=== PATIENT | male | born 1995 | race Caucasian/White ===

== ENCOUNTER 2017-02-24 19:07 | Emergency (ER) | payer OTHER ==
[~2017-02-24] VITALS: Ht 177.8 cm; Wt 108.9 kg
[2017-02-24] MEDS ORDERED: PARO-49 PO (19:22)
[2017-02-24] MEDS ORDERED: LIDO15SO2 MM (19:39)
[2017-02-24] MEDS ORDERED: PENI500T PO (19:39)
[2017-02-24] MEDS ORDERED: NAPR500T3 PO (19:39)
--- NOTE | 2017-02-24 19:39 | ED EENT ---
History of Present Illness General Chief Complaint: Dental Problems/Pain Stated Complaint: TOOTH PAIN Nursing Triage Note: pt c/o left lower posterior dental pain starting . reports swelling et bleeding. Source: patient History of Present Illness Time seen by provider: 19:30 Initial Comments C/O PAIN TO LEFT LOWER WISDOM TOOTH AREA SINCE Sunday02/22/17 STATES HE IS CUTTING A WISDOM TOOTH AND IT HAS BEEN SWOLLEN, PAINFUL AND BLEEDING STATES HE HAS HAD SEVERAL DOSES OF IBUPROFEN WITHOUT RELIEF--LAST DOSE WAS 400 MG AT 1730 TODAY HAS AN APPOINTMENT WITH A DENTIST NEXT SUNDAY FOR THIS PROBLEM NO FEVER NO SWELLING TO JAW PCP: [facility] Allergies and Home Medications Allergies Coded Allergies: No Known Drug Allergies (Unverified , 02/24/17) Home Medications Lidocaine HCl 15 Ml Solution, 15 ML MM Q 1-2 HOURS, #1 Prescribed by: ARTHUR SCHULTZ on 02/24/171938 Naproxen 500 Mg Tablet, 500 MG PO BID, #20 Prescribed by: ARTHUR SCHULTZ on 02/24/171938 Paroxetine HCl 20 Mg Tablet, 20 MG PO DAILY, (Reported) Penicillin V Potassium 500 Mg Tablet, 500 MG PO QID, #40 Prescribed by: ARTHUR SCHULTZ on 02/24/171938 Review of Systems Constitutional: no symptoms reported Eyes: No Symptoms Reported Ears: No Symptoms Reported Nose: no symptoms reported Mouth: see HPI Throat: no symptoms reported Respiratory: no symptoms reported Cardiovascular: no symptoms reported Gastrointestinal: no symptoms reported Musculoskeletal: no symptoms reported Skin: no symptoms reported Neurological: No Symptoms Reported Past Tqqvzdw-Gsggvs-Sjheew Hx Patient Social History Alcohol Use: Denies Use Recreational Drug Use: No Smoking Status: Current Someday Smoker Recent Foreign Travel: No Contact w/Someone Who Travel: No Recent Infectious Disease Expo: No Recent Hopitalizations: No Seasonal Allergies Seasonal Allergies: No Surgeries HX Surgeries: Yes (bilat wrist surgery) Surgeries: Orthopedic Respiratory Hx Respiratory Disorders: No Cardiovascular Hx Cardiac Disorders: No Neurological Hx Neurological Disorders: No Genitourinary Hx Genitourinary Disorders: No Gastrointestinal Hx Gastrointestinal Disorders: No Musculoskeletal Hx Musculoskeletal Disorders: Yes (BILATERAL WRIST SURGERY) Endocrine Hx Endocrine Disorders: No HEENT HX ENT Disorders: No Cancer Hx Cancer: No Psychosocial Hx Psychiatric Problems: Yes Behavioral Health Disorders: Depression Integumentary HX Skin/Integumentary Disorder: No Physical Exam Vital Signs Vital Sign - Last 12Hours 02/24/17 02/24/17 19:20 19:55 Temp 98.2 Pulse 83 Resp 16 B/P (MAP) 140/97 Pulse Ox 98 General Appearance: WD/WN, no apparent distress Eyes: bilateral eye normal inspection Ears: bilateral ear TM normal, bilateral ear auricle normal, bilateral ear canal normal Nose: normal inspection Mouth/Throat: pharynx normal, No excessive drooling, No mandibular swelling, No maxillary swelling, No trismus, other (LEFT LOWER 3RD MOLAR AREA WITH SWELLING TO GUM AND EVIDENCE OF PARTIAL ERUPTION OF MOLAR, WITH SCANT AMOUNT OF BLOOD NOTED TO AREA. NO AREAS OF FLUCTUANCE. NO SWELLING TO BUCCAL MUCOSA OR TO JAW/FACE. OTHER 3RD MOLARS APPEAR TO BE NON-INFLAMED AND NON-ERUPTED AT THIS TIME. ) Neck: non-tender, full range of motion, supple, normal inspection, No lymphadenopathy (R) Cardiovascular: regular rate, rhythm, no murmur Respiratory: normal breath sounds Neurologic/Psychiatric: desulphurizer operator II-XII nml as tested, no motor/sensory deficits, alert, normal mood/affect, oriented x 3 Skin: normal color, warm/dry Progress/Results/Core Measures Results/Orders My Orders Orders - ANTOINEARTHUR K DO Rx-Penicillin Vk Tablet (Rx-Pen-Vee K Ta (02/24/17 19:43) Rx-Naproxen (Rx-Naprosyn) (02/24/17 19:43) Lidocaine 2% Viscous 15 Ml (Xylocaine Vi (02/24/17 19:45) Medications Given in ED Current Medications Medications Dose Ordered Sig/Barry Route Start Time Stop Time Status Last Admin Dose Admin Lidocaine HCl 5 ml ONCE ONCE MM 02/24/17 19:45 02/24/17 19:46 DC 02/24/17 19:55 15 ML Vital Signs/I&O Vital Sign - Last 12Hours 02/24/17 02/24/17 19:20 19:55 Temp 98.2 Pulse 83 76 Resp 16 16 B/P (MAP) 140/97 Pulse Ox 98 Blood Pressure Mean: 111 Departure Impression Impression: Primary Impression: WISDOM TOOTH PAIN Additional Impression: IMPACTED WISDOM TOOTH Disposition: 01 HOME, SELF-CARE Condition: Stable Departure-Patient Inst. Referrals: NO,LOCAL PHYSICIAN (PCP) Primary Care Physician Patient Instructions: Dental Pain (DC), Impacted Tooth (DC) Add. Discharge Instructions: FREQUENT SALT WATER SWISHES LOTS OF CLEAR LIQUIDS FOLLOW UP WITH DENTIST NEXT WEEK SCHEDULED All discharge instructions reviewed with patient and/or family. Voiced understanding. Scripts Lidocaine HCl (Lidocaine HCl Viscous) 15 Ml Solution 15 ML MM Q 1-2 HOURS for Pain, #1 EA Prov: ARTHUR SCHULTZ DO 02/24/17 Naproxen (Naproxen) 500 Mg Tablet 500 MG PO BID, #20 TAB Prov: ARTHUR SCHULTZ DO 02/24/17 Penicillin V Potassium (Penicillin V Potassium) 500 Mg Tablet 500 MG PO QID for FOR INFECTION, #40 TAB Prov: ARTHUR SCHULTZ DO 02/24/17 Work/School Note: Work Release Form Date Seen in the Emergency Department: Feb 24, 2017 Return to Work: Feb 25, 2017 ARTHUR SCHULTZ DO Feb 24, 2017 19:39
[2017-02-24] MEDS ORDERED: RX-NAPROXEN (NAPROSYN) 250 MG TAB PPK#4 PO STA (19:43)
[2017-02-24] MEDS ORDERED: RX-PENICILLIN V K 250MG TAB PPK#4 PO STA (19:43)
[2017-02-24] MEDS ORDERED: LIDOCAINE 2% VISCOUS 15 ML UDC MM ONE (19:45)
[2017-02-24 19:55] VITALS: BP 137/78
--- OUTSIDE RECORDS SUMMARY | 2017-04-01 05:26 | XMS REPORT | Continuity of Care Document ---
Author Author [facility] Organization [facility] Address Unknown Phone Unavailable Allergies Medications Problems Procedures Results Encounters ACCT No. Visit Date/Time Discharge Status Pt. Type Provider Facility Loc./Unit Complaint [id number] 01/11/2016 10:17:35 ACT Outpatient Edmond Gonzalez [id number] 12/27/2015 10:56:26 ACT Outpatient Edmond Gonzalez
--- OUTSIDE RECORDS SUMMARY | 2017-04-01 05:27 | XMS REPORT ---
Author Edmond David [facility] Address [address] [place], [place] [id number] Care Team Providers Care Grapple Operator Name Role Phone Edmond Gonzalez PCP Allergies and Adverse Reactions Name Reaction Notes NO KNOWN DRUG ALLERGIES Plan of Treatment Not available. Medications Active Name Start Date Estimated Completion Date SIG Comments sumatriptan succinate 50 mg oral tablet 04/28/2016 05/28/2016 take 1 tablet ( 50 mg) by oral route once with fluids as early as possible after the onset of a migraine attack;may repeat after 2 hours if headache returns, not to exceed 200mg in 24hrs for 30 days nortriptyline 50 mg oral capsule 04/28/2016 07/27/2016 take 1 capsule by oral route once a day (at bedtime) for 30 days Name Start Date Expiration Date SIG Comments nicotine 7 mg/24 hr transdermal patch 24 hour 12/27/2015 03/26/2016 apply 1 patch (7 mg) by transdermal route once daily and remove at bedtime for 30 days Proventil HFA 90 mcg/actuation inhalation HFA aerosol inhaler 12/27/20152015 inhale 2 puffs by inhalation route 30 minutes prior to exercise Problem List Not available. Vital Signs Date Time BP-Sys(mm[Hg] BP-Irma(mm[Hg]) HR(bpm) RR(rpm) Temp WT HT HC BMI BSA BMI Percentile O2 Sat(%) 04/28/2016 8:09:00 AM 130 mmHg 70 mmHg 97 bpm 14 rpm 98.7 F 233.25 lbs 72 in 31.63 kg/m2 2.32 m2 97 % 01/11/2016 9:41:00 AM 130 mmHg 82 mmHg 97 bpm 16 rpm 97 F 233 lbs 72 in 31.6002 kg/m 2.3171 m 99 % 12/27/2015 10:16:00 AM 112 mmHg 72 mmHg 78 bpm 16 rpm 97.9 F 233 lbs 72 in 31.60 kg/m2 2.32 m2 98 % Social History Name Description Comments Tobacco Current every day smoker Alcohol Use Never History of Procedures Date Ordered Description Order Status 12/27/2015 12:00 AM ASSAY THYROID STIM HORMONE Returned 12/27/2015 12:00 AM COMPREHEN METABOLIC PANEL Returned 12/27/2015 12:00 AM LIPID PANEL Returned Results Summary Data and Description Results 12/28/2015 8:28 AM TRIGLYCERIDES 213.0 mg/dLCHOLESTEROL 232.0 mg/dLHDL 33.0 mg/ dLLDL (CALC) 156.0 mg/dLTSH 1.90 uIU/mLGLUCOSE 93.0 mg/dLSODIUM 141.0 mmol/ LPOTASSIUM 3.90 mmol/LCHLORIDE 104.0 mmol/LCO2 28.0 mmol/LBUN 11.0 mg/ dLCREATININE 1.0 mg/dLSGOT/AST 31.0 IU/LSGPT/ALT 59.0 IU/LALK PHOS 80.0 IU/ LTOTAL PROTEIN 7.50 g/dLALBUMIN 4.70 g/dLTOTAL BILI 0.50 mg/dLCALCIUM 9.90 mg/ dLeGFR >60 mL/min/1.73m History Of Immunizations Not available. History of Past Illness Name Date of Onset Comments HEADACHES Obesity (BMI 30-39.9) Dec 27 2015 10:20AM Migraine without aura and without status migrainosus, not intractable Dec 27 2015 10:20AM Tobacco dependence Dec 27 2015 10:20AM Shortness of breath Dec 27 2015 10:20AM Chronic Recurrent Migraine Jan 11 2016 9:44AM Obesity due to excess calories, unspecified obesity severity Jan 11 2016 9: 44AM Migraine with aura and with status migrainosus, not intractable Apr 28 2016 8 :11AM Payers Insurance Name Company Name Plan Name Plan Number Policy Number Policy Group Number Start Date Aetna Aetna [id number] N/A History of Encounters Visit Date Visit Type Provider 04/28/[address] Edmond Gonzalez MD 01/11/[address] Edmond Gonzalez MD 12/27/[address] Edmond Gonzalez MD
--- OUTSIDE RECORDS SUMMARY | 2017-04-01 05:27 | XMS REPORT | CCD ---
Author Author PATRICK GENE Organization Unknown Address [address] [place], [place] [id number] Care Team Providers Care Configuration Specialist Name Role Phone OMIGIANCARLO PAUL MD Attphys [facility] GIANCARLO YOUSIF MD Prisurg Vital Signs Unknown or Not Available. Allergies Unknown or Not Available. Procedures Procedure Code Procedure Type Date ^CBC W/AUTO DIFF 4560020 SNOMED CT 02/16/[address] SN[address] 02/16/2015 INFLUENZA A & B [id number] SNOMED CT 02/16/2015 CBC W/ AUTO DIFF (RFLX MAN DIFF IF IND) [id number] SNOMED CT 02/16/2015 History of Immunizations Unknown or Not Available. Problems Unknown or Not Available. Results CBC W/ AUTO DIFF (RFLX MAN DIFF IF IND) - Collect Date/Time: 02/16/2015 19:30 Test Name Code Test Result Test Units Test Ref Range WBC 64676-3 5.4 TH/CMM L=4.5 H=10.8 RBC 789-8 5.15 ML/CMM L=4.70 H=6.10 HGB 718-7 14.9 G/DL L=14.0 H=18.0 HCT 4544-3 43.4 % L=42.0 H=52.0 MCV 84 FL L=81 H=99 MCH 28.9 PG L=27.0 H=33.0 MCHC 34.3 G/DL L=31.0 H=36.0 RDW SD 40 FL L=36 H=50 RDW CV 13.1 % L=0.0 H=14.8 MPV 10.1 FL L=9.3 H=12.5 PLT 777-3 243 TH/CMM L=130 H=440 NRBC# 0.00 TH/CMM L=0.00 H=0.00 NRBC% 0.0 /100WBC L=0.0 H=2.0 %NEUT 50.8 % %LYMP 37.1 % %MONO 10.0 % %EOS 1.9 % %BASO 0.2 % #NEUT 2.74 TH/CMM L=2.10 H=8.20 #LYMP 2.00 TH/CMM L=0.90 H=5.20 #MONO 0.54 TH/CMM L=0.16 H=1.00 #EOS 0.10 TH/CMM L=0.00 H=0.80 #BASO 0.01 TH/CMM L=0.00 H=0.20 MANUAL DIFF NOT IND N/A INFLUENZA A & B - Collect Date/Time: 02/16/2015 19:30 Test Name Code Test Result Test Units Test Ref Range INFLUENZA A & B 6437-8 NO INFLUENZA A OR B DETECTED N/A STREP SCREEN - Collect Date/Time: 02/16/2015 20:19 Test Name Code Test Result Test Units Test Ref Range STREP SCREEN 6556-5 NEGATIVE N/A NORMAL: NEGATIVE Active Medications Unknown or Not Available. Medications Administered During Visit Unknown or Not Available. Encounters Encounter Diagnosis Diagnosis Code Start Date UNSPEC VIRAL INFECTION 57527 02/16/2015 Social History Smoking Status Code Start Date End Date Never smoker [id number] Patient Decision Aids Unknown or Not Available. Discharge Instructions You were admitted to [facility] on 02/16/2015 with a principal diagnosis of UNSPEC VIRAL INFECTION. You were discharged from [facility] on 02/16/2015. Should you have any questions prior to discharge, please contact a member of your healthcare team. If you have left the hospital and have any questions, please contact your primary care physician. Chief Complaint and Reason For Visit Chief Complaint Date of Onset RUNNING NOSE COUGH SORE THROAT HEADACHE Function Status Unknown or Not Available. Referral/Transition of Care Unknown or Not Available.
--- OUTSIDE RECORDS SUMMARY | 2017-04-01 05:27 | XMS REPORT ---
Author Edmond David [facility] Address [address] [place], [place] [address] Care Team Providers Care Product Management Consultant Name Role Phone Edmond Gonzalez PCP Allergies and Adverse Reactions Name Reaction Notes NO KNOWN DRUG ALLERGIES Plan of Treatment Planned Activity Comments Planned Date Planned Time Plan/Goal ASSAY THYROID STIM HORMONE 12/27/2015 12:00 AM COMPREHEN METABOLIC PANEL 12/27/2015 12:00 AM LIPID PANEL 12/27/2015 12:00 AM Medications Active Name Start Date Estimated Completion Date SIG Comments nortriptyline 10 mg oral capsule 12/27/2015 03/26/2016 take 1 capsule by oral route daily for 30 days nicotine 7 mg/24 hr transdermal patch 24 [...] HC BMI BSA BMI Percentile O2 Sat(%) 12/27/2015 10:16:00 AM 112 mmHg 72 mmHg 78 bpm 16 rpm 97.9 F 233 lbs 72 in 31.60 kg/m2 2.32 m2 98 % Social History Name Description Comments Tobacco use Current some day Alcohol Use Former History of Procedures Not available. Results Summary Not available. History Of Immunizations Not available. History of Past Illness Name Date of Onset Comments HEADACHES Obesity (BMI 30-39.9) Dec 27 2015 10:20AM Migraine without aura and without status migrainosus, not intractable Dec 27 2015 10:20AM Tobacco dependence Dec 27 2015 10:20AM Shortness of breath Dec 27 2015 10:20AM Payers Insurance Name Company Name Plan Name Plan Number Policy Number Policy Group Number Start Date Aetna Aetna [id number] N/A History of Encounters Visit Date Visit Type Provider 12/27/[address] Edmond Gonzalez MD
--- OUTSIDE RECORDS SUMMARY | 2017-04-01 05:27 | XMS REPORT ---
Author Edmond David [facility] Address [address] [place], [place] [phone] Care Team Providers Care Electrical Mechanic Name Role Phone Edmond Gonzalez PCP Allergies and Adverse Reactions Name Reaction Notes NO KNOWN DRUG ALLERGIES Plan of Treatment Not available. Medications Active Name Start Date Estimated Completion Date SIG Comments nicotine 7 mg/24 hr transdermal patch 24 hour 12/27/2015 03/26/2016 apply 1 patch (7 mg) by transdermal route once daily and remove at bedtime for 30 days Proventil HFA 90 mcg/actuation inhalation HFA aerosol inhaler 12/27/20152015 inhale 2 puffs by inhalation route 30 minutes prior to exercise nortriptyline 10 mg oral capsule 01/11/2016 04/10/2016 take 2 capsules by oral route daily for 30 days Problem List Not available. Vital Signs Date Time BP-Sys(mm[Hg] BP-Irma(mm[Hg]) HR(bpm) RR(rpm) Temp WT HT HC BMI BSA BMI Percentile O2 Sat(%) 01/11/2016 9:41:00 AM 130 mmHg 82 mmHg 97 bpm 16 rpm 97 F 233 lbs 72 in 31.60 kg/m2 2.32 m2 99 % 12/27/2015 10:16:00 AM 112 mmHg 72 mmHg 78 bpm 16 rpm 97.9 F 233 lbs 72 in 31.6002 kg/m 2.3171 m 98 % Social History Name Description Comments [...] obesity severity Jan 11 2016 9: 44AM Payers Insurance Name Company Name Plan Name Plan Number Policy Number Policy Group Number Start Date Aetna Aetna [id number] N/A History of Encounters Visit Date Visit Type Provider 01/11/[address] Edmond Gonzalez MD 12/27/[address] Edmond Gonzalez MD
== END 2017-02-24 19:55 | disposition home or self-care (01) ==
LOC: ER 19:12
DX: K01.1 Impacted teeth (principal); F17.210 Nicotine dependence, cigarettes, uncomplicated
CPT/HCPCS: 99282

== ENCOUNTER 2018-09-15 07:15 | Emergency (ER) | payer OTHER ==
[~2018-09-15] VITALS: Ht 177.8 cm; Wt 108.9 kg
[~2018-09-15 07:15] MED LIST: LIDO15SO2 MM; NAPR-915 PO; PARO-49 PO; PENI500T PO
--- NOTE | 2018-09-15 07:53 | ED GI ---
General Chief Complaint: Abdominal/GI Problems Stated Complaint: N/V/D Nursing Triage Note: Pt reports n/v/d since 1530 yesterday. Pt reported symptoms started with " sulfur burps". Pt reports no relief w/ pepto. 7-8 episodes of v/d in last 24 hours. Sepsis Screen: No Definite Risk Source of Information: Patient Exam Limitations: No Limitations History of Present Illness Date Seen by Provider: Sep 15, 2018 Time Seen by Provider: 07:49 Initial Comments This 23-year-old male presents with a history of sulfa burps that began yesterday followed by recurrent nausea and vomiting without hematemesis and associated progressive diarrhea without associated black and tarry stools. Next The patient has had no associated fever or chills. He has had no ingestion of questionable food. He denies similar episode in the past. His past medical history includes anxiety for which she is on Lexapro. Patient states that he is unable to keep liquids down because of his persistent nausea. Allergies and Home Medications Allergies Coded Allergies: No Known Drug Allergies (Unverified , 02/24/17) Home Medications Lidocaine HCl 15 Ml Solution, 15 ML MM Q 1-2 HOURS Prescribed by: ARTHUR SCHULTZ on 02/24/171938 Naproxen 500 Mg Tablet, 500 MG PO BID Prescribed by: ARTHUR SCHULTZ on 02/24/171938 Paroxetine HCl 20 Mg Tablet, 20 MG PO DAILY, (Reported) Penicillin V Potassium 500 Mg Tablet, 500 MG PO QID Prescribed by: ARTHUR SCHULTZ on 02/24/171938 Patient Home Medication List Home Medication List Reviewed: Yes Review of Systems Review of Systems Constitutional: No chills, No fever EENTM: No Symptoms Reported Respiratory: Denies Cough Cardiovascular: Denies Chest Pain Gastrointestinal: See HPI; Denies Abdomen Distended, Denies Abdominal Pain; Diarrhea, Nausea, Vomiting Genitourinary: No Symptoms Reported Musculoskeletal: no symptoms reported; No back pain Skin: no symptoms reported; No rash Psychiatric/Neurological: Anxiety Endocrine: No Symptoms Reported Hematologic/Lymphatic: No Symptoms Reported Past Lmpdkej-Jskwnm-Xguloi Hx Past Med/Social Hx: Reviewed Nursing Past Med/Soc Hx Patient Social History Alcohol Use: Denies Use Recreational Drug Use: No Smoking Status: Current Everyday Smoker Type Used: Cigarettes Recent Foreign Travel: No Contact w/Someone Who Travel: No Recent Infectious Disease Expo: No Recent Hopitalizations: No Seasonal Allergies Seasonal Allergies: No Past Medical History Surgeries: Yes (bilat wrist surgery) Orthopedic Respiratory: No Cardiac: No Neurological: No Genitourinary: No Gastrointestinal: No Musculoskeletal: Yes (BILATERAL WRIST SURGERY) Endocrine: No HEENT: No Cancer: No Psychosocial: Yes Anxiety, Depression Integumentary: No Physical Exam Vital Signs Vital Signs - First Documented 09/15/18 07:31 Temp 98.1 Pulse 87 Resp 18 B/P (MAP) 141/87 (105) Pulse Ox 97 O2 Delivery Room Air Capillary Refill : Less Than 3 Seconds Height/Weight/BMI Height: 5'10.00" Weight: 240lbs. oz. 108.825795nl; BMI Method:Stated General Appearance: WD/WN, no apparent distress HEENT: normal ENT inspection Neck: full range of motion, supple, normal inspection Respiratory: lungs clear, normal breath sounds, no respiratory distress Cardiovascular: normal peripheral pulses, regular rate, rhythm Gastrointestinal: normal bowel sounds, non tender, soft Extremities: normal range of motion, normal inspection Back: normal inspection Neurologic/Psychiatric: no motor/sensory deficits, alert, normal mood/affect, oriented x 3 Skin: normal color, warm/dry Progress/Results/Core Measures Results/Orders Lab Results Laboratory Tests Test 09/15/18 08:10 Range/Units White Blood Count 8.7 4.3-11.0 10^3/uL Red Blood Count 5.87 H 4.35-5.85 10^6/uL Hemoglobin 16.4 13.3-17.7 G/DL Hematocrit 47 40-54 % Mean Corpuscular Volume 80 80-99 FL Mean Corpuscular Hemoglobin 28 25-34 PG Mean Corpuscular Hemoglobin Concent 35 32-36 G/DL Red Cell Distribution Width 14.0 10.0-14.5 % Platelet Count 327 130-400 10^3/uL Mean Platelet Volume 10.8 H 7.4-10.4 FL Neutrophils (%) (Auto) 67 42-75 % Lymphocytes (%) (Auto) 24 12-44 % Monocytes (%) (Auto) 7 0-12 % Eosinophils (%) (Auto) 2 0-10 % Basophils (%) (Auto) 0 0-10 % Neutrophils # (Auto) 5.8 1.8-7.8 X 10^3 Lymphocytes # (Auto) 2.1 1.0-4.0 X 10^3 Monocytes # (Auto) 0.6 0.0-1.0 X 10^3 Eosinophils # (Auto) 0.2 0.0-0.3 10^3/uL Basophils # (Auto) 0.0 0.0-0.1 10^3/uL Sodium Level 139 135-145 MMOL/L Potassium Level 4.3 3.6-5.0 MMOL/L Chloride Level 108 H 98-107 MMOL/L Carbon Dioxide Level 19 L 21-32 MMOL/L Anion Gap 12 5-14 MMOL/L Blood Urea Nitrogen 16 7-18 MG/DL Creatinine 1.10 0.60-1.30 MG/DL Estimat Glomerular Filtration Rate > 60 BUN/Creatinine Ratio 15 Glucose Level 126 H 70-105 MG/DL Calcium Level 9.7 8.5-10.1 MG/DL Corrected Calcium 8.5-10.1 MG/DL Total Bilirubin 0.4 0.1-1.0 MG/DL Aspartate Amino Transf (AST/SGOT) 30 5-34 U/L Alanine Aminotransferase (ALT/SGPT) 44 0-55 U/L Alkaline Phosphatase 81 40-136 U/L Total Protein 8.0 6.4-8.2 GM/DL Albumin 4.7 H 3.2-4.5 GM/DL Lipase 33 8-78 U/L My Orders Orders - ULISES NGUYEN MD Cbc With Automated Diff (09/15/18 07:47) Comprehensive Metabolic Panel (09/15/18 07:47) Lipase (09/15/18 07:47) Ondansetron Injection (Zofran Injectio (09/15/18 08:00) Ns Iv 1000 Ml (Sodium Chloride 0.9%) (09/15/18 08:00) Medications Given in ED Current Medications Medications Dose Ordered Sig/Barry Route Start Time Stop Time Status Last Admin Dose Admin Ondansetron HCl 4 mg ONCE ONCE IVP 09/15/18 08:00 09/15/18 08:02 DC 09/15/18 08:12 4 MG Vital Signs/I&O 09/15/18 07:31 Temp 98.1 Pulse 87 Resp 18 B/P (MAP) 141/87 (105) Pulse Ox 97 O2 Delivery Room Air Blood Pressure Mean: 105 Critical Care Note Critical Care Start Time: 09:17 Total Time (minutes) The patient was given a liter of normal saline and 4 mg Zofran IV. The patient was symptomatically improved and was able to take clear liquids in the emergency department. Patient's laboratory evaluation was unremarkable. I discussed patient's findings and recommended treatment course for this viral gastroenteritis with him. I believe that the patient understands and will be compliant with clear liquids for the next 24 hours and Zofran as needed for nausea. Departure Impression Primary Impression: Viral gastroenteritis Disposition: 01 HOME, SELF-CARE Condition: Improved Departure-Patient Inst. Decision time for Depature: 09:19 Referrals: TAYLA JORDAN APRN (PCP) Primary Care Physician Patient Instructions: [id number] Add. Discharge Instructions: Zofran for nausea. Clear liquids for the next 24 hours. Follow-up with your doctor tomorrow if you have any residual problems. Return to the emergency department if any acute problems or questions. All discharge instructions reviewed with patient and/or family. Voiced understanding. ULISES NGUYEN MD Sep 15, 2018 07:53
[2018-09-15] MEDS ORDERED: NS IV 1000 ML 1,000 ML IV SCH (08:00)
[2018-09-15] MEDS ORDERED: ONDANSETRON 4 MG/2 ML (SDV) Z0FRAN IVP ONE (08:00)
[2018-09-15 08:20] LABS: BASOPHILS % (AUTO) 0 % (0-10); EOSINOPHILS # (AUTO) 0.2 10^3/uL (0.0-0.3); EOSINOPHILS % (AUTO) 2 % (0-10); HEMATOCRIT 47 % (40-54); HEMOGLOBIN 16.4 G/DL (13.3-17.7); LYMPHOCYTES # (AUTO) 2.1 X 10^3 (1.0-4.0); LYMPHOCYTES % (AUTO) 24 % (12-44); MEAN CORPUSCULAR HEMOGLOBIN 28 PG (25-34); MEAN CORPUSCULAR HGB CONC 35 G/DL (32-36); MEAN CORPUSCULAR VOLUME 80 FL (80-99); MEAN PLATELET VOLUME 10.8 FL (7.4-10.4); MONOCYTES # (AUTO) 0.6 X 10^3 (0.0-1.0); MONOCYTES % (AUTO) 7 % (0-12); NEUTROPHILS # (AUTO) 5.8 X 10^3 (1.8-7.8); NEUTROPHILS % (AUTO) 67 % (42-75); PLATELET COUNT 327 10^3/uL (130-400); RED BLOOD COUNT 5.87 10^6/uL (4.35-5.85); WHITE BLOOD COUNT 8.7 10^3/uL (4.3-11.0)
[2018-09-15 08:41] LABS: ALANINE AMINOTRANSFERASE 44 U/L (0-55); ALBUMIN 4.7 GM/DL (3.2-4.5); ALKALINE PHOSPHATASE 81 U/L (40-136); BILIRUBIN,TOTAL 0.4 MG/DL (0.1-1.0); BUN/CREATININE RATIO 15; CALCIUM 9.7 MG/DL (8.5-10.1); CARBON DIOXIDE 19 MMOL/L (21-32); CHLORIDE 108 MMOL/L (98-107); GFR ESTIMATED > 60; GLUCOSE 126 MG/DL (70-105); LIPASE 33 U/L (8-78); POTASSIUM 4.3 MMOL/L (3.6-5.0); SODIUM 139 MMOL/L (135-145)
[2018-09-15 09:30] VITALS: BP 129/89
== END 2018-09-15 09:30 | disposition home or self-care (01) ==
LOC: EDUNIT# 07:15 → ER 07:16
DX: A08.4 Viral intestinal infection, unspecified (principal); F41.9 Anxiety disorder, unspecified; F32.9 Major depressive disorder, single episode, unspecified; F17.210 Nicotine dependence, cigarettes, uncomplicated
CPT/HCPCS: 36415; 80053; 83690; 85025